=== PATIENT | female | born 1970 | race Caucasian/White ===

== ENCOUNTER → 2021-03-10 | Outpatient (CLI) | payer BC ==
--- NOTE | 2021-03-20 15:13 | BMR ---
EXAMINATION TYPE: MR breast BILAT wo/w con DATE OF EXAM: 03/10/2021 COMPARISON: Outside mammogram 10/10/2014, outside breast MRI 06/12/2010 HISTORY: Malignant neoplasm breast, silicone implant status TECHNIQUE: A series of fat and water weighted images in the long and short axis views of both breasts are obtained in conjunction with dynamic contrast MRI with subtraction technique. The patient was i njected with 7.5 mL intravenous Gadavist gadolinium contrast. Three-dimensional and additional post processing imaging is created on independent workstation and reviewed during official interpretation of this study. FINDINGS: Although the study was not performed to evaluate the integrity of the breast implants, there are bila teral retropectoral breast implants noted. The breast tissue is heterogeneously dense bilaterally with moderate bilateral background parenchymal enhancement with a nodular type pattern. There is a 2.6 x 2.8 cm of nodular nonmass enhancement in the left lower inner breast at posterior de pth abutting the implant which demonstrates mixed kinetics which are predominantly persistent. In the right outer breast at approximately 9:00 middle depth, there is a 1.3 x 1.7 cm area of nonmass enhancement with mixed kinetics, predominantly persistent. There is no definite lymphadenopathy seen bilaterally. IMPRESSION: Areas of nonmass enhancement are noted in the right breast at 9:00 and in the left lower inner breast abutting the implant and are indeterminant. Bilateral diagnostic mammogram and ultrasound are recomm ended for further evaluation. BI-RADS 0, incomplete.
== END | disposition home or self-care (01) ==
LOC: RADMRIMAIN 11:52
PROVIDERS: ATTEND Nurse Practitioner Family
DX: C50.811 Malignant neoplasm of overlapping sites of right female breast (principal); C50.312 Malignant neoplasm of lower-inner quadrant of left female breast
CPT/HCPCS: 77049; C8937; A9585